=== PATIENT | female | born 1995 | race Caucasian/White ===

== ENCOUNTER 2018-03-19 14:36 | Emergency (ER) | payer MEDICAID, OTHER ==
[~2018-03-19] VITALS: Ht 167.6 cm; Wt 56.7 kg
[2018-03-19 14:46] VITALS: BP 102/54
--- NOTE | 2018-03-19 14:57 | NUR ---
PATIENT PRESENTS TO ED WITH THE CHIEF C/O SORE THROAT. PT HAS TENDENESS ON BOTH NECK, NO SWELLING NOTED. HAS PAIN ON SWALLOWING. DENIES N/V. SKIN IS PINK/WARM/DRY; AAOX4 WITH EVEN AND STEADY GAIT; LUNGS CLEAR BL; HR EVEN AND REGULAR; PT DENIES ANY FEVER, CP, SOB, OR COUGH AT THIS TIME; PATIENT STATES PAIN OF 8/10 AT THIS TIME; VSS; PATIENT POSITIONED FOR COMFORT; HOB ELEVATED; BEDRAILS UP X2; BED DOWN. ER MD MADE AWARE OF PT STATUS.
--- NOTE | 2018-03-19 15:52 | NUR ---
SAMPLES FOR INFLUENZA A & B AND STREP A SCREEN TAKEN TO THE LAB.
[2018-03-19 17:08] VITALS: BP 102/54
--- NOTE | 2018-03-19 17:09 | NUR ---
Patient discharged with v/s stable. Written and verbal after care instructions given and explained. Patient verbalized understanding. Ambulatory with steady gait. All questions addressed prior to discharge. Advised to follow up with PMD.
== END 2018-03-19 17:09 | disposition home or self-care (01) ==
LOC: MED 14:36
DX: B34.9 Viral infection, unspecified (principal)
CPT/HCPCS: 36415; 87081; 87804; 99283